=== PATIENT | female | born 1985 | race Caucasian/White ===

== ENCOUNTER 2016-06-13 14:10 | Emergency (ER) | payer SELFPAY ==
[2016-06-13 14:28] LABS: Bilirubin Negative (Negative); Blood, Urine Negative (Negative); Clarity Hazy (Clear); Glucose, Urine (Dipstick) Negative (Negative); Leukocyte Trace (Negative); Nitrite Negative (Negative); Protein, Urine (Dipstick) Negative (Neg-Trace); Specific Gravity 1.006 (1.002-1.036); Specific Gravity, Urine 1.006 (1.002-1.036)
[2016-06-13 14:29] LABS: Pregu Control Bar Appear? YES (CONTROL BAR)
[2016-06-13 14:30] LABS: Bacteria/HPF 1+ HPF (None Seen); RBC/HPF None Seen HPF (0-3); WBC/HPF 0-3 HPF (0-3)
[2016-06-13] MEDS ORDERED: Sulfameth/Trimethoprim DS 800-160mg TAB ONE (14:41)
== END 2016-06-13 14:48 | disposition home or self-care (01) ==
LOC: NAV ERS 14:10
DX: N39.0 Urinary tract infection, site not specified (principal); I10 Essential (primary) hypertension; F17.210 Nicotine dependence, cigarettes, uncomplicated
CPT/HCPCS: 81003; 81015; 81025

== ENCOUNTER 2018-09-02 16:37 | Emergency (ER) | payer SELFPAY ==
[2018-09-02] MEDS ORDERED: Sodium Chloride 0.9% 1,000 ML ONE (17:33)
[2018-09-02 18:01] LABS: #Basophils 0.1 thou/uL (0.0-0.2); #Lymphocytes 1.4 thou/uL (1.20-3.40); #Monocytes 0.5 thou/uL (0.11-0.59); #Neutrophils 6.2 thou/uL (1.40-6.50); %Basophils 0.7 % (0.0-1.0); %Eosinophils 0.1 % (0.0-10.0); %Lymphocytes 17.3 % (21.0-51.0); %Neutrophils 75.8 % (42.0-75.0); Hemoglobin 13.4 g/dL (12.0-16.0); Mean Corpuscular HGB CONC 31.2 g/dL (32.0-36.0); Mean Corpuscular Hemoglobin 26.4 pg (27.0-31.0); Mean Corpuscular Volume 84.5 fL (78.0-98.0); Mean Platelet Volume 12.1 fL (7.4-10.4); Platelet Count 162 thou/uL (130-400); RBC Distribution Width 13.1 % (11.5-14.5); Red Blood Cell (RBC) Count 5.09 mill/uL (4.20-5.40); White Blood Cell (WBC) Count 8.1 thou/uL (4.8-10.8)
[2018-09-02 18:09] LABS: BHCG - Serum Negative (NEGATIVE); Pregs Control Bar Appear? YES (CONTROL BAR)
[2018-09-02 18:14] LABS: ALT (SGPT) 15 U/L (8-55); AST (SGOT) 22 U/L (5-34); Albumin 4.1 g/dL (3.5-5.0); Alkaline Phosphatase 90 U/L (40-150); Anion Gap 16 mmol/L (10-20); BUN (Urea Nitrogen) 6 mg/dL (7.0-18.7); Bilirubin, Total 0.8 mg/dL (0.2-1.2); Calc. Creatinine Clearance 0 mL/min (70-130); Calcium 8.8 mg/dL (7.8-10.44); Carbon Dioxide 26 mmol/L (22-29); Chloride 102 mmol/L (98-107); Estimated GFR-MDRD Greater than 90; Globulin 3.8 g/dL (2.4-3.5); Glucose 91 mg/dL (70-105); Lipase 4 U/L (8-78); Protein, Total 7.9 g/dL (6.0-8.3); Sodium 141 mmol/L (136-145)
[2018-09-02 18:16] LABS: Potassium 2.8 mmol/L (3.5-5.1)
[2018-09-02] MEDS ORDERED: Potassium Chloride 20 MEQ TAB ONE (18:27)
[2018-09-02] MEDS ORDERED: Ondansetron PF 4 MG/2 ML Vial ONE (18:27)
[2018-09-10 10:11] LABS: Routine O & P Final report (.)
== END 2018-09-02 19:24 | disposition home or self-care (01) ==
LOC: NAV ERS 16:37
DX: E86.0 Dehydration (principal); E87.6 Hypokalemia; E83.42 Hypomagnesemia; R19.7 Diarrhea, unspecified; R11.2 Nausea with vomiting, unspecified; F17.210 Nicotine dependence, cigarettes, uncomplicated
CPT/HCPCS: 80053; 82274; 83690; 83735; 84703; 85025; 87045; 87046; 87324; 87449; 87899; 94760; 96361; 96374; J2405; J7050

== ENCOUNTER 2025-02-15 16:13 | Emergency (ER) | payer BC, SELFPAY ==
[~2025-02-15 16:13] MED LIST: Iopamidol 370 76% 100 ML VIAL ONE
[2025-02-15] MEDS ORDERED: cefTRIAXone (ROCEPHIN) 2 GM VIAL ONE (17:08)
[2025-02-15 17:21] LABS: ALT (SGPT) 15 U/L (Less than 34); AST (SGOT) 18 U/L (11-34); Albumin 3.7 g/dL (3.1-4.5); Alkaline Phosphatase 90 U/L (40-110); Anion Gap 16 mmol/L (10-20); BUN (Urea Nitrogen) 8 mg/dL (7.0-18.7); Bilirubin, Total 1.0 mg/dL (0.3-1.2); Calc. Creatinine Clearance 0 mL/min (70-130); Calcium 8.9 mg/dL (7.8-10.44); Carbon Dioxide 20 mmol/L (22-29); Chloride 104 mmol/L (98-107); Globulin 4.7 g/dL (2.4-3.5); Glucose 167 mg/dL (70-105); Potassium 3.1 mmol/L (3.5-5.1); Sodium 137 mmol/L (136-145)
[2025-02-15 17:24] LABS: Hematocrit 42.7 % (36.0-47.0); Hemoglobin 14.9 g/dL (12.0-16.0); Mean Corpuscular Hemoglobin 29.0 pg (27.0-31.0); Mean Corpuscular Volume 83.4 fl (78.0-98.0); Platelet Count 201 10x3/uL (130-400); Red Blood Cell (RBC) Count 5.12 mill/uL (4.20-5.40); White Blood Cell (WBC) Count 19.9 10x3/uL (4.8-10.8)
[2025-02-15] MEDS ORDERED: Ondansetron PF 4 MG/2 ML Vial ONE ×2 (18:04→18:11)
[2025-02-15] MEDS ORDERED: Acetaminophen 500 MG TAB ONE (18:16)
[2025-02-15] MEDS ORDERED: Ketorolac Tromethamine 30 MG (1 mL) VIAL ONE (18:22)
[2025-02-15 19:03] LABS: MDiff Complete? YES
[2025-02-15 23:01] LABS: MONO NEGATIVE CONTROL ZONE White (Negative) (White); MONO POSITIVE CONTROL Pink Line (Positive) (PINK/RED); Mononucleosis NEGATIVE (NEGATIVE)
== END 2025-02-15 19:53 | disposition home or self-care (01) ==
LOC: NAV ERS 16:13
DX: J03.90 Acute tonsillitis, unspecified (principal); E05.90 Thyrotoxicosis, unspecified without thyrotoxic crisis or storm; F17.290 Nicotine dependence, other tobacco product, uncomplicated; Z79.899 Other long term (current) drug therapy
CPT/HCPCS: 36415; 70491; 80053; 83605; 84443; 85025; 86308; 87040; 87081; 87428; 87430; 93005; 96374; 96375; J0696; J1885; J2270; J2405; J2919; J7030; Q9967